=== PATIENT | female | born 1985 | race Caucasian/White ===

== ENCOUNTER → 2021-03-01 | Outpatient (CLI) | payer BC ==
[2021-03-01 11:29] LABS: BASO % 0.4 % (0.0-2.0); EOS # 0.1 K/mm3 (0.0-0.7); EOS % 1.6 % (0.0-4.0); GRAN # 3.2 K/mm3 (1.4-6.5); GRAN % 63.1 % (42.2-75.2); HEMATOCRIT 41.4 % (37.0-47.0); HEMOGLOBIN 13.1 g/dl (12.5-16.0); LYMPH # 1.4 K/mm3 (1.2-3.4); LYMPH % 27.8 % (20.0-51.0); MEAN CELL VOLUME 89 fl (80.0-100.0); MEAN CORPUSCULAR HEMOGLOBIN 28 pg (27-31); MEAN CORPUSCULAR HGB CONC 32 g/dl (33.0-37.0); MEAN PLATELET VOLUME 11.7 fl (7.4-10.4); MONO # 0.4 K/mm3 (0.1-0.6); MONO % 7.1 % (1.7-9.3); PLATELET COUNT 185 K/mm3 (130-400); RED BLOOD COUNT 4.64 M/mm3 (4.10-5.30); REDCELL DISTRIBUTION WIDTH-CV 13.1 % (11.5-14.5)
== END ==
LOC: COL.LAB 10:47
PROVIDERS: Family Medicine
DX: M79.89 Other specified soft tissue disorders (principal)

== ENCOUNTER → 2021-03-18 | Outpatient (CLI) | payer BC | LOC: ZCOL.LAB 13:07 | DX: R53.83 Other fatigue (principal); R09.81 Nasal congestion ==

== ENCOUNTER → 2021-10-10 | Outpatient (CLI) | payer BC | LOC: MC.RAD 08:12 | DX: N63.10 Unspecified lump in the right breast, unspecified quadrant (principal) ==

== ENCOUNTER → 2021-10-22 | Outpatient (CLI) | payer BC | LOC: MC.RAD 07:51 | DX: D24.1 Benign neoplasm of right breast (principal) ==

== ENCOUNTER → 2023-10-08 | Outpatient (CLI) | payer BC | LOC: MC.RAD 08:32 | DX: Z12.31 Encounter for screening mammogram for malignant neoplasm of breast (principal) ==